=== PATIENT | female | born 1950 | race African-American/Black ===

== ENCOUNTER 2016-07-06 08:38 | Inpatient (IN) | payer OTHER ==
[2016-07-01 12:28] VITALS: BMI 40.5
[2016-07-06] MEDS ORDERED: CEFAZOLIN 2 GM in DEXTROSE 5%-WATER - 50 ML IVPB ONE (09:02)
[2016-07-06] MEDS ORDERED: ROPIVICAINE 0.2%/MORPH PF/KETOROLAC - 51ML DISP.SYRINGE IA ONE (09:02)
[2016-07-06] MEDS ORDERED: TRANEXAMIC ACID 1000 MG/10 ML VIAL IVPUSH ONE (09:02)
[2016-07-06] MEDS: CELECOXIB 200 MG CAPSULE PO ONE ×2 (09:15→15:06)
[2016-07-06] MEDS: oxyCODONE HCL 10 MG SUSTAINED ACTING TABLET PO ONE ×2 (09:15→15:06)
[2016-07-06] MEDS: GABAPENTIN 300 MG CAPSULE (FP) PO ONE ×2 (09:15→15:06)
[2016-07-06] MEDS ORDERED: BUPIVACAINE HCL/PF 0.5% (5MG/ML) 10 ML VIAL ONE (09:22)
[2016-07-06] MEDS ORDERED: VANCOMYCIN 1,750 MG in DEXTROSE 5%-WATER - 500 ML IVPB ONE ×2 (10:00→23:00)
[2016-07-06] MEDS ORDERED: MIDAZOLAM HCL 2 MG/2 ML SINGLE DOSE VIAL ONE (10:41)
[2016-07-06] MEDS ORDERED: ROPIVACAINE HCL 0.5% 30ML VIAL ONE (10:41)
[2016-07-06] MEDS ORDERED: DEXAMETHASONE SOD PHOSPHATE/PF 10 MG/ML SDV ONE (10:43)
--- NOTE | 2016-07-06 12:29 | HP ---
Admitting History and Physical - Admission Chief Complaint: left knee OA History of Present Illness: Left knee pain x many years, failed conservative management, had R TKA 03/2016 and did well. Indicated for L TKA. History Source: Patient, Medical Record Limitations to Obtaining History: No Limitations - Past Medical History CULINARY ASSISTANT: Yes: TIA Cardiovascular: Yes: HTN, Hyperlipdemia - Past Surgical History Past Surgical History: Yes: Joint Replacement - Smoking History Smoking history: Never smoked Have you smoked in the past 12 months: No Aproximately how many cigarettes per day: 0 - Alcohol/Substance Use Hx Alcohol Use: No - Social History ADL: Independent Occupation: Medical care History of Recent Travel: No Home Medications - Allergies Allergies/Adverse Reactions: Allergies Allergy/AdvReac Type Severity Reaction Status Date / Time codeine [Codeine] AdvReac GI UPSET Verified 11/11/15 23:42 - Home Medications Home Medications: Ambulatory Orders Olmesartan/Hydrochlorothiazide [Benicar Hct 40-25 mg Tablet] 1 each PO DAILY Aspirin [Ecotrin] 81 mg PO DAILY 07/01/16 Cholecalciferol (Vitamin D3) [Vitamin D3] 2,000 unit PO DAILY 07/01/16 Vitamin B Complex 1 each PO DAILY 07/01/16 Family Disease History - Family Disease History Family Disease History: Other: Father (HTN) Physical Examination Vital Signs: Vital Signs Temperature 99 F 07/06/16 09:30 Pulse Rate 76 07/06/16 09:30 Respiratory Rate 18 07/06/16 09:30 Blood Pressure 140/80 07/06/16 09:30 O2 Sat by Pulse Oximetry (%) Constitutional: Yes: Well Nourished, No Distress, Calm Eyes: Yes: WNL, Conjunctiva Clear HENT: Yes: WNL, Atraumatic, Normocephalic Neck: Yes: WNL, Supple Cardiovascular: Yes: WNL, Regular Rate and Rhythm Respiratory: Yes: WNL, Regular Gastrointestinal: Yes: WNL, Soft, Abdomen, Obese ...Rectal Exam: Yes: Deferred Musculoskeletal: Yes: Joint Stiffness, Joint Swelling, Muscle Pain Extremities: Yes: WNL Edema: No Peripheral Pulses WNL: Yes Integumentary: Yes: WNL Neurological: Yes: WNL, Alert, Oriented ...Motor Strength: WNL Psychiatric: Yes: WNL, Alert, Oriented Labs: Reviewed in chart Imaging - Results X-ray: Image Reviewed (valgus grade 4 OA) Problem List - Problems (1) Osteoarthritis of left knee Code(s): M17.9 - OSTEOARTHRITIS OF KNEE, UNSPECIFIED Qualifiers: Osteoarthritis type: primary Qualified Code(s): M17.12 - Unilateral primary osteoarthritis, left knee Assessment/Plan 65yo female with left knee OA for L TKA
[2016-07-06] MEDS ORDERED: PROMETHAZINE HCL 25 MG/1 ML VIAL IVPUSH PRN (16:07)
[2016-07-06] MEDS ORDERED: ONDANSETRON 4 MG/2 ML VIAL IVPUSH PRN (16:07)
[2016-07-06] MEDS ORDERED: HYDROmorphone HCL CARPU-JECT 1 MG/1 ML DISP.SYRIN IVPUSH PRN (16:07)
[2016-07-06] MEDS ORDERED: oxyCODONE HCL 5 MG TABLET PO PRN ×2 (16:09)
[2016-07-06] MEDS ORDERED: ROPIVACAINE 0.2% 400ML 400 ML ML NR ONE (16:09)
[2016-07-06] MEDS: ACETAMINOPHEN 1000 MG/100 ML VIAL (NON FORMULARY) IVPB ONE ×2 (16:15→18:44)
[2016-07-06] MEDS ORDERED: MAGNESIUM HYDROX 2400MG/30ML ORAL SUSPENSION 30 ML CUP PO PRN (16:33)
[2016-07-06] MEDS ORDERED: MAG HYDROX/AL HYDROX/SIMETH 30 ML UNIT-DOSE CUP PO PRN (16:33)
[2016-07-06] MEDS ORDERED: VANCOMYCIN 1,750 MG in DEXTROSE 5%-WATER - 250 ML IVPB ONE (16:33)
[2016-07-06] MEDS ORDERED: ONDANSETRON 4 MG/2 ML VIAL IVPB PRN (16:33)
--- NOTE | 2016-07-06 16:33 | OP ---
Operative Note - Note: Operative Date: 07/06/16 Pre-Operative Diagnosis: left knee OA Operation: left TKA Post-Operative Diagnosis: Same as Pre-op Surgeon: Rocael Waldron Test Engineering Intern: Melinda Walsh Anesthesia: Spinal Estimated Blood Loss (mls): 100
[2016-07-06] MEDS: traMADol HCL 50 MG TABLET PO SCH ×2 (16:45→22:10)
[2016-07-06] MEDS: KETOROLAC TROMETHAMINE 30 MG/1 ML VIAL IVPUSH SCH ×2 (16:45→22:10)
[2016-07-06] MEDS ORDERED: LACTATED RINGERS SOLUTION 1,000 ML IV SCH (16:45)
[2016-07-06] MEDS: CEFAZOLIN 2 GM/D5W 50 ML IVPB SCH (18:45)
[2016-07-06] MEDS ORDERED: GABAPENTIN 300 MG CAPSULE (FP) PO SCH (22:00)
[2016-07-06] MEDS: SENNOSIDES/DOCUSATE COMBO (SENNA PLUS) TABLET (UD) PO SCH (22:10)
[2016-07-06] MEDS: CELECOXIB 200 MG CAPSULE PO SCH (22:11)
[2016-07-06] MEDS: GABAPENTIN 300 MG CAPSULE (FP) PO SCH (22:11)
[2016-07-06] MEDS: oxyCODONE HCL 10 MG SUSTAINED ACTING TABLET PO SCH (22:11)
[2016-07-06] MEDS: ACETAMINOPHEN 325 MG TABLET (FP) PO SCH (22:11)
[2016-07-06] MEDS: ASCORBIC ACID 500 MG TABLET (FP) PO SCH (22:11)
[2016-07-07] MEDS: CEFAZOLIN 2 GM/D5W 50 ML IVPB SCH (02:01)
[2016-07-07] MEDS: ACETAMINOPHEN 325 MG TABLET (FP) PO SCH ×4 (06:48→21:50)
[2016-07-07] MEDS: traMADol HCL 50 MG TABLET PO SCH ×4 (06:49→21:55)
[2016-07-07] MEDS: KETOROLAC TROMETHAMINE 30 MG/1 ML VIAL IVPUSH SCH ×2 (06:49→12:30)
[2016-07-07 09:07] LABS: MCH 28.4 pg (25.7-33.7); MCHC 31.3 g/dl (32.0-36.0); MEAN CELL VOLUME 90.8 fl (80-96); MEAN PLT VOLUME 7.7 fl (7.5-11.1); PLATELET COUNT 236 K/MM3 (134-434); RDW 12.5 % (11.6-15.6); WHITE BLOOD COUNT 6.4 K/mm3 (4.0-10.0)
[2016-07-07] MEDS: VALSARTAN 160 MG TABLET (UD) PO SCH (09:18)
[2016-07-07] MEDS: ASPIRIN 325 MG TABLET PO SCH (09:19)
[2016-07-07] MEDS: SENNOSIDES/DOCUSATE COMBO (SENNA PLUS) TABLET (UD) PO SCH ×2 (09:19→21:55)
[2016-07-07] MEDS: ASCORBIC ACID 500 MG TABLET (FP) PO SCH ×2 (09:22→21:55)
[2016-07-07] MEDS: CELECOXIB 200 MG CAPSULE PO SCH ×2 (09:22→21:55)
[2016-07-07] MEDS: MULTIVITAMINS (DAILY MVI) TABLET (FP) PO SCH (09:22)
[2016-07-07] MEDS: GABAPENTIN 300 MG CAPSULE (FP) PO SCH ×2 (09:23→21:55)
[2016-07-07] MEDS: HYDROCHLOROTHIAZIDE 25 MG TABLET (FP) PO SCH (09:24)
[2016-07-07] MEDS: oxyCODONE HCL 10 MG SUSTAINED ACTING TABLET PO SCH ×2 (09:24→21:55)
[2016-07-07] MEDS: PANTOPRAZOLE 40 MG TABLET (FP) PO SCH (09:24)
[2016-07-07 09:38] LABS: CALCIUM 8.5 mg/dl (8.4-10.2); CREATININE 0.9 mg/dl (0.6-1.3)
--- NOTE | 2016-07-07 10:33 | PN ---
Progress Note (short form) - Note Progress Note: ANESTHESIA POST-OP CHECK 65F s/p left total knee replacement under spinal anesthesia and PNB with adductor canal catheter, POD #1. C/o nausea, currently tolerating PO but vomited once this am and once last night. Ambulated with PT, denies pain, backache, headache. Vital Signs Temperature 98.3 F 07/07/16 05:33 Pulse Rate 74 07/07/16 05:33 Respiratory Rate 19 07/07/16 05:33 Blood Pressure 98/45 07/07/16 05:33 O2 Sat by Pulse Oximetry (%) 94 L 07/07/16 05:33 Active Medications Acetaminophen (Tylenol -) 650 mg PO Q6H [facility] Stop: 07/09/16 21:59 Last Admin: 07/07/16 09:18 Dose: 650 mg Al Hydroxide/Mg Hydroxide (Mylanta Oral Suspension -) 30 ml PO Q4H PRN PRN Reason: DYSPEPSIA Ascorbic Acid (Vitamin C -) 500 mg PO BID [facility] Last Admin: 07/07/16 09:22 Dose: 500 mg Aspirin (Asa -) 325 mg PO DAILY@0800 [facility] Last Admin: 07/07/16 09:19 Dose: 325 mg Celecoxib (Celebrex -) 200 mg PO BID [facility] Last Admin: 07/07/16 09:22 Dose: 200 mg Gabapentin (Neurontin -) 300 mg PO BID [facility] Last Admin: 07/07/16 09:23 Dose: 300 mg Hydrochlorothiazide (Hctz -) 25 mg PO DAILY [facility] Last Admin: 07/07/16 09:24 Dose: 25 mg Ketorolac Tromethamine (Toradol Injection -) 30 mg IVPUSH Q6H [facility] Stop: 07/07/16 10:46 Last Admin: 07/07/16 06:49 Dose: Not Given Magnesium Hydroxide (Milk Of Magnesia -) 30 ml PO PRN PRN PRN Reason: CONSTIPATION Multivitamins/Minerals/Vitamin C (Tab-A-Vit -) 1 tab PO DAILY [facility] Last Admin: 07/07/16 09:22 Dose: 1 tab Ondansetron HCl (Zofran Injection) 4 mg IVPB Q6H PRN PRN Reason: NAUSEA Oxycodone HCl (Oxycontin -) 10 mg PO BID [facility] Stop: 07/09/16 16:10 Last Admin: 07/07/16 09:24 Dose: Not Given Oxycodone HCl (Roxicodone -) 5 mg PO Q4H PRN PRN Reason: PAIN Stop: 07/09/16 16:10 Oxycodone HCl (Roxicodone -) 10 mg PO Q4H PRN PRN Reason: PAIN Stop: 07/09/16 16:10 Pantoprazole Sodium (Protonix -) 40 mg PO DAILY [facility] Last Admin: 07/07/16 09:24 Dose: 40 mg Senna/Docusate Sodium (Pericolace -) 1 tablet PO BID [facility] Last Admin: 07/07/16 09:19 Dose: 1 tablet Tramadol HCl (Ultram -) 50 mg PO Q6H [facility] Last Admin: 07/07/16 06:49 Dose: Not Given Valsartan (Diovan -) 320 mg PO DAILY [facility] Last Admin: 07/07/16 09:18 Dose: 320 mg Gen: awake, alert Adductor canal catheter site clean, dry and intact No apparent anesthesia complications, pain well controlled. Spoke with nurse and will administer antiemetic. Instructed to call anesthesia if nausea persists
--- NOTE | 2016-07-07 16:17 | PN ---
Progress Note (short form) - Note Progress Note: Pt seen and examined this AM. Doing well. Pain well controlled. AVSS Selected Entries 07/07/16 05:33 Temperature 98.3 F Pulse Rate 74 Respiratory 19 Rate Blood Pressure 98/45 Laboratory Tests 07/07/16 07/07/16 08:18 08:18 WBC 6.4 Hgb 8.8 L Hct 28.2 L Plt Count 236 D Sodium 136 Potassium 4.2 Chloride 102 Carbon Dioxide 27 Anion Gap 7 L BUN 21 H Creatinine 0.9 Random Glucose 119 H D Calcium 8.5 Gen: NAD LLE: c/d/i, NVID A/P 65yo female POD#1 s/p L TKA 1. PT/OOB 2. D/C home tomorrow Problem List - Problems (1) Osteoarthritis of left knee Code(s): M17.9 - OSTEOARTHRITIS OF KNEE, UNSPECIFIED Qualifiers: Osteoarthritis type: primary Qualified Code(s): M17.12 - Unilateral primary osteoarthritis, left knee
[2016-07-08] MEDS: traMADol HCL 50 MG TABLET PO SCH ×2 (04:15→14:57)
[2016-07-08] MEDS: ACETAMINOPHEN 325 MG TABLET (FP) PO SCH ×2 (04:15→09:57)
[2016-07-08 06:27] VITALS: BP 112/49; PULSE 79; TEMP 98.5
[2016-07-08 08:22] LABS: MCH 28.4 pg (25.7-33.7); MCHC 31.2 g/dl (32.0-36.0); MEAN PLT VOLUME 7.3 fl (7.5-11.1); PLATELET COUNT 229 K/MM3 (134-434); RDW 12.6 % (11.6-15.6); WHITE BLOOD COUNT 5.5 K/mm3 (4.0-10.0)
[2016-07-08 08:34] LABS: CALCIUM 8.3 mg/dl (8.4-10.2)
--- NOTE | 2016-07-08 09:18 | PN ---
Progress Note (short form) - Note Progress Note: Pt seen and examined this AM. Doing well. Pain well controlled. AVSS Selected Entries 07/08/16 06:26 Temperature 98.5 F Pulse Rate 79 Respiratory 18 Rate Blood Pressure 112/49 O2 Sat by Pulse 96 Oximetry (%) Oxygen Delivery Room Air Method Laboratory Tests 07/08/16 07/08/16 07:30 07:30 WBC 5.5 Hgb 8.9 L Hct 28.5 L Plt Count 229 Sodium 139 Potassium 4.1 Chloride 105 Carbon Dioxide 28 Anion Gap 6 L BUN 26 H D Creatinine 1.0 Random Glucose 97 Calcium 8.3 L Gen: NAD LLE: c/d/i, NVID A/P 65yo female POD#2 s/p L TKA 1. PT/OOB 2. D/C home today. Problem List - Problems (1) Osteoarthritis of left knee Code(s): M17.9 - OSTEOARTHRITIS OF KNEE, UNSPECIFIED Qualifiers: Osteoarthritis type: primary Qualified Code(s): M17.12 - Unilateral primary osteoarthritis, left knee
--- NOTE | 2016-07-08 09:23 | PN ---
Progress Note (short form) - Note Progress Note: Pt states she has medications at home, so no additional prescriptions sent today. Problem List - Problems (1) Osteoarthritis of left knee Code(s): M17.9 - OSTEOARTHRITIS OF KNEE, UNSPECIFIED Qualifiers: Osteoarthritis type: primary Qualified Code(s): M17.12 - Unilateral primary osteoarthritis, left knee
[2016-07-08] MEDS: ASPIRIN 325 MG TABLET PO SCH (09:55)
[2016-07-08] MEDS: CELECOXIB 200 MG CAPSULE PO SCH (09:55)
[2016-07-08] MEDS: VALSARTAN 160 MG TABLET (UD) PO SCH (09:55)
[2016-07-08] MEDS: oxyCODONE HCL 10 MG SUSTAINED ACTING TABLET PO SCH (09:56)
[2016-07-08] MEDS: HYDROCHLOROTHIAZIDE 25 MG TABLET (FP) PO SCH (09:56)
[2016-07-08] MEDS: ASCORBIC ACID 500 MG TABLET (FP) PO SCH (09:56)
[2016-07-08] MEDS: SENNOSIDES/DOCUSATE COMBO (SENNA PLUS) TABLET (UD) PO SCH (09:56)
[2016-07-08] MEDS: GABAPENTIN 300 MG CAPSULE (FP) PO SCH (09:56)
[2016-07-08] MEDS: MULTIVITAMINS (DAILY MVI) TABLET (FP) PO SCH (09:56)
[2016-07-08] MEDS: PANTOPRAZOLE 40 MG TABLET (FP) PO SCH (09:57)
--- NOTE | 2016-07-08 13:47 | PATH ---
Surgical Pathology Report Patient Name: CHIO CISNEROS Med. Rec. #: [id number] /Age/Gender: 1950 (Age: 65) / F Account: [id number] Location: [facility] MED-SURG Taken: 07/06/2016 Received: 07/06/2016 Reported: 07/08/2016 Physicians: Rocael Waldron M.D. Specimen(s) Received BONE LEFT KNEE Clinical History Osteoarthritis left knee Final Diagnosis BONE, LEFT KNEE, TOTAL KNEE REPLACEMENT: DEGENERATIVE JOINT DISEASE. Electronically Signed Camille Linn M.D. Gross Description Received in formalin, labeled "bone left knee," is a 14.0 x 12.0 x 1.5 cm aggregate of multiple nicole, irregular portions of bone and soft tissue. There is a 3 cm in greatest dimension area of eburnation present. The remaining articular surfaces are nicole-yellow and focally granular. The underlying trabecular bone is yellow and hard. Supervisor Insulation sections are submitted in one cassette, following decalcification. 07/07/201607/07/2016
--- NOTE | 2016-07-08 15:07 | PN ---
Progress Note (short form) - Note Progress Note: pod #2, s/p tkr with adductor canal and selective tibail n block pt doing well with min c/o pain, at most 4 of 10, tolerating with NSAIDs prn avss 5/5 motor strength, hip knee and ankle site CDI plan Cath dc'd, tip intact with go home for rehab with orals for pain no complications noted
--- NOTE | 2016-07-14 01:02 | SPEC ---
DATE OF OPERATION: 07/06/2016 PREOPERATIVE DIAGNOSIS: Left knee osteoarthritis. POSTOPERATIVE DIAGNOSIS: Left knee osteoarthritis. PROCEDURE: Left total knee replacement. ATTENDING: Jannette Burgos M.D. SALES REPRESENTATIVE [employer] SUPPLIES: Muna Gautam ANESTHESIA: Spinal plus sedation. ESTIMATED BLOOD LOSS: 150 mL. COMPLICATIONS: None. SPECIMENS: Resected bone was sent for pathology and analysis. DISPOSITION: The patient was transferred to the PACU in stable condition. IMPLANTS USED: Ayaz Triathlon size 4 femoral and tibial components, 11-mm posterior stabilized polyethylene component, 32-mm patellar component. INDICATION: This is a 65-year-old female who is a well known patient of mine who has had bilateral knee osteoarthritis. She was initially treated conservatively but failed nonoperative management. She underwent a right total knee replacement in March 2016 and did well postoperative. Her pain had completely resolved, and she elected to proceed with the left total knee replacement as well. The risks, benefits, and alternatives to the procedure were explained again to the patient in the office, and she elected to proceed with the surgery. On the day of surgery, the patient was taken to the operating room and placed on the OR table. Spinal anesthesia was administered by the anesthesiologist. The patient was then positioned supine on the table and all bony prominences were padded. A nonsterile tourniquet was placed on the proximal thigh. The knee was then prepped and draped in the usual sterile fashion and intravenous antibiotics were given for infection prophylaxis. A surgical time-out was then performed with the team, and the patients identity, procedure, side, availability of implants, and the administration of antibiotics was confirmed. The leg was then elevated and exsanguinated, and the tourniquet was inflated. With the knee flexed, a midline incision was made and carried down through the subcutaneous fat to the underlying retinaculum. A medial parapatellar arthrotomy was performed. This was followed by a subperiosteal dissection of the tissue off the proximal, medial tibia. A portion of fat pad was removed from under the patellar tendon, and a small portion of fat was excised off the distal supracondylar femur. The knee was then flexed further and the anterior horn of the lateral meniscus was released from the midline. Next, the anterior and posterior cruciate ligaments were transected. Osteophytes were removed from both the femur and tibia. Grade 4 changes were noted diffusely throughout the knee. Hohmann retractors were then placed around the distal femur. The starting drill was used to enter the intramedullary canal. The starting point had been chosen by checking the radiographs and anatomy. Proper alignment and intramedullary placement was then confirmed by placing the long narrow jarrod into the femur. Next, the distal femoral cutting guide was adjusted to 6 degrees of valgus and pinned to the femur. The bone resection was assessed using an aysha-wing. An approximately 10mm distal cut was made and the cut pieces measured. Once this was complete, the sizing guide was used to determine which size femoral component should be used. Next, the appropriately sized 4-in-1 cutting block was then placed at the correct amount of external rotation and the aysha wing was used to assure that there would be no notching of the anterior cortex of the femur. Once this was done, Hohmann retractors were used to protect the medial and lateral collateral ligaments, and all appropriate bone cuts were made. Attention was then turned to the tibia. Hohmann retractors were used to translate the tibia anteriorly and protect the collateral ligaments. The medial and lateral menisci were removed. The extramedullary tibial alignment guide was then placed and adjusted for rotation, varus/valgus, and slope. The height of the cutting block was adjusted to the level of the desired bone resection and then pinned in place. The proximal tibia was then cut with a saw and the bone was removed and measured. Once this was completed, trial components were placed and the knee was taken through a full range of motion. Soft tissue balance was assessed in both flexion and extension and found to be appropriate. The knee was stable throughout the full range of motion. The knee was then put into extension and the patella everted. The synovium around the patella was circumscribed with electrocautery. A caliper was used to measure the patellar thickness and a saw was then used to resect the patella at the chondro-osseous junction. The cut surface was then sized and drilled for the appropriate patellar button, with care taken to medialize it. A trial patella was then placed and the knee was again taken through a full range of motion. The knee was found to have both good balance and good patellar tracking. All of the components were removed except the tibial base plate. The appropriate instrumentation was used to drill and punch the proximal tibia for the keel of the final component. All bony surfaces were then cleaned with pulsatile lavage and dried. Bone cement was then prepared on the back table, and final components were cemented in place in the usual fashion. Extruded cement was removed. The polyethylene trial was placed, the knee was put into extension, and axial pressure was applied for compression while the cement hardened. The patellar button was similarly cemented into place. Once the cement had hardened, the knee was taken through a full range of motion to assess stability, balance, and patellar tracking. This was found to be optimal and the trial polyethylene was exchanged for the appropriately sized real implant. The wound was then thoroughly irrigated with normal saline. No. 1 Polysorb and 0 VLoc 180 barbed sutures were used to close the arthrotomy. No. 1 Polysorb and 2-0 Polysorb sutures were used in the subcutaneous tissues. The skin was closed using both 3-0 VLoc 90 suture in a running subcuticular fashion and SwiftSet skin adhesive. Once this was completed a sterile Aquacel dressing and compressive Noman-wrap was applied. The tourniquet was then deflated and the patient was awakened and taken to the PACU in stable condition. JANNETTE BURGOS M.D. [id number]
== END 2016-07-08 16:00 | disposition home health service (06) | DRG 470 ==
LOC: FM/S 08:38
PROVIDERS: ADMIT Student in an Organized Health Care Education/Training Program; ATTEND Student in an Organized Health Care Education/Training Program
PROC: 0SRD0JZ Replacement of Left Knee Joint with Synthetic Substitute, Open Approach (ICD-10-PCS; principal; 2016-07-06 12:59)
DX: M17.12 Unilateral primary osteoarthritis, left knee (principal); Z68.41 Body mass index [BMI] 40.0-44.9, adult; I10 Essential (primary) hypertension; E78.5 Hyperlipidemia, unspecified; E66.8 Other obesity; Z71.3 Dietary counseling and surveillance; Z86.73 Personal history of transient ischemic attack (TIA), and cerebral infarction without residual deficits; Z96.651 Presence of right artificial knee joint
CPT/HCPCS: 36415; 73560-TC-LT; 80048; 85027; 88304-TC; 88311-TC; 94010; 94760; 97116-GP; 97162-PG

== ENCOUNTER 2017-03-08 08:57 | Emergency (ER) | payer OTHER ==
[2017-03-08 09:06] VITALS: TEMP 98; BMI 39.9
--- NOTE | 2017-03-08 09:14 | PDOC ---
History of Present Illness - General Chief Complaint: CVA/TIA Stated Complaint: numbness HEADACHE Time Seen by Provider: 03/08/17 09:10 History Source: Patient Exam Limitations: No Limitations - History of Present Illness Initial Comments: 03/08/17 10:55 A 66 y/o F with a significant pmhx of HTN presents for a c/o right sided facial numbness. She states that she woke up this morning around 6am and was feeling dizziness. She checked her BP, which was in the 180s, systolic. She then took her BP med (Benicar) and rechecked her BP about 10 mins later, which went down to the 140s systolic. Around 8am, she started feeling right sided facial numbness, which prompted her to come to the ED. She has never had the facial numbness before. Patient feels nauseous but denies vomiting. She denies headache, blurry vision, facial pain, CP, SOB, weakness of extremities. 03/08/17 10:59 Timing/Duration: reports: 1-3 hours, waxing and waning Severity: Yes: moderate Associated Symptoms: reports: denies symptoms Past History - Past Medical History Allergies/Adverse Reactions: Allergies Allergy/AdvReac Type Severity Reaction Status Date / Time codeine [Codeine] AdvReac GI UPSET Verified 03/08/17 09:00 Home Medications: Ambulatory Orders Olmesartan/Hydrochlorothiazide [Benicar Hct 40-25 mg Tablet] 1 each PO DAILY Cholecalciferol (Vitamin D3) [Vitamin D3] 50,000 unit PO WEEKLY 07/01/16 Aspirin [ASA -] 81 mg PO DAILY@0800 03/08/17 Anemia: Yes Asthma: No Cancer: No Cardiac Disorders: No CVA: No COPD: No CHF: No Dementia: No Diabetes: No GI Disorders: No Disorders: No HTN: Yes Hypercholesterolemia: No Liver Disease: No Seizures: No Thyroid Disease: No - Surgical History Abdominal Surgery: No Appendectomy: No Cardiac Surgery: Yes (card cath no stent) Cholecystectomy: No Lung Surgery: No Neurologic Surgery: No Orthopedic Surgery: Yes (b/l knee replacements) - Reproductive History LMP comment: menopausal - Suicide/Smoking/Psychosocial Hx Smoking Status: No Smoking History: Never smoked Have you smoked in the past 12 months: No Number of Cigarettes Smoked Daily: 0 Information on smoking cessation initiated: No Hx Alcohol Use: No Drug/Substance Use Hx: No Substance Use Type: None Hx Substance Use Treatment: No Review of Systems - Review of Systems Is the patient limited Faroese proficient: No Constitutional: Yes: Weakness HEENTM: No: Blurred Vision, Recent change in vision, Double Vision Cardiac (ROS): No: Lightheadedness ABD/GI: Yes: Nausea. No: Vomiting Neurological: Yes: Numbness All Other Systems: Reviewed and Negative *Physical Exam - Vital Signs Last Vital Signs Temp Pulse Resp BP Pulse Ox 98.0 F 80 18 150/77 100 03/08/17 09:01 03/08/17 09:01 03/08/17 09:01 03/08/17 09:01 03/08/17 09:01 - Physical Exam General Appearance: Yes: Nourished, Appropriately Dressed, Obese HEENT: positive: EOMI, DAWOOD, Normal Voice Respiratory/Chest: positive: Lungs Clear, Normal Breath Sounds Cardiovascular: positive: Regular Rhythm, Regular Rate Gastrointestinal/Abdominal: positive: Normal Bowel Sounds, Soft NIH Stroke Scale - Last Known Well Date/Time & Onset Date Last Known Well: 03/08/17 - Initial Evaluation Level of consciousness: Alert Ask patient the month and their age: Answers both correctly Ask patient to open & close eyes; make fist and let go: Obeys both correctly Best gaze (horizontal eye movement): Normal Visual field testing: No visual field loss Facial paresis (Show teeth/raise eyebrows/close eyes tight): Normal symmetrical movement Motor Function: Left Arm: Normal Motor Function: Right Arm: Normal (extends arm 90 (or 45) degrees for 10 seconds without drift Motor Function: Left Leg: Normal (extends leg 30 degrees for 5 seconds without drift) Motor Function: Right Leg: Normal (extends leg 30 degrees for 5 seconds without drift) Limb Ataxia: No ataxia Sensory(Use pinprick test arms,legs,trunk,face/side to side): Normal Best language (Describe picture, name items, read sentences): No Aphasia Dysarthria (read several words): Normal articulation Extinction and Inattention: No abnormality - Total Score NIH Stroke Scale Score: 0 Critical Care Time/MDM Note - Medical Decision Making Note: 03/08/17 12:36 Paresthesia's to face, Not really numbness. Will refer to Neurology. All testing non-diagnostic at present. 03/08/17 12:37 Chronic Dizziness, Vertigo is the most likely diagnosis although anemia is present 03/08/17 12:39 Discharge Disposition - Diagnosis Facial paresthesia, Vertigo Anemia Qualifiers: Anemia type: unspecified type Qualified Code(s): D64.9 - Anemia, unspecified; D64.9 - Anemia, unspecified - Discharge Dispostion Disposition: HOME Condition at time of disposition: Good Admit: No - Referrals Referrals: Rocael Armstrong MD [Primary Care Provider] - Gurpreet Rosario MD [Staff Physician] - - Patient Instructions Printed Discharge Instructions: DI for Numbness/tingling, DI for Iron Deficiency Anemia-Adult, DI for Vertigo Additional Instructions: Gregoria- Please follow up with Dr. Rosario, Neurology, In the meantime should you get worse or any new symptoms occur, please return to us. Best- Dr. Oseas Hartley
[2017-03-08 10:37] LABS: BASOPHIL 1.2 % (0-2.0); EOSINOPHIL 3.6 % (0-4.5); MCH 29.3 pg (25.7-33.7); MCHC 31.3 g/dl (32.0-36.0); MEAN CELL VOLUME 93.5 fl (80-96); MEAN PLT VOLUME 8.3 fl (7.5-11.1); NEUTROPHILS 53.7 % (42.8-82.8); PLATELET COUNT 213 K/MM3 (134-434); RDW 13.1 % (11.6-15.6); WHITE BLOOD COUNT 3.9 K/mm3 (4.0-10.0)
[2017-03-08 10:49] LABS: ALBUMIN 3.6 g/dl (3.4-5.0); ANION GAP 9 (8-16); CALCIUM 8.6 mg/dL (8.5-10.1); CO2 26 mmol/L (21-32); GLUCOSE,RANDOM 84 mg/dL (74-106)
[2017-03-08 10:54] LABS: ALK PHOS 107 U/L (45-117); BILIRUBIN,TOTAL 0.3 mg/dL (0.2-1.0); SGPT/ALT 16 U/L (12-78); TOT PROT 7.6 g/dl (6.4-8.2); TROPONIN I < 0.02 ng/ml (0.00-0.05)
[2017-03-08 10:56] LABS: CPK 144 IU/L (26-192); SGOT/AST 28 U/L (15-37)
[2017-03-08 12:24] LABS: URINE APPEARANCE CLEAR; URINE BILIRUBIN NEGATIVE (NEGATIVE); URINE BLOOD 1+ (NEGATIVE); URINE COLOR LTYELLOW; URINE GLUCOSE (UA) NEGATIVE (NEGATIVE); URINE KETONE NEGATIVE (NEGATIVE); URINE NITRITE NEGATIVE (NEGATIVE); URINE PROTEIN NEGATIVE (NEGATIVE); URINE UROBILINOGEN NEGATIVE mg/dL (0.2-1.0)
[2017-03-08 12:35] LABS: URINE HYALINE CAST 1 /lpf; URINE MUCUS RARE; URINE RBC 2 /hpf (0-3); URINE WBC 1 /hpf (3-5)
[2017-03-08] MEDS ORDERED: MECLIZINE HCL 25 MG TABLET (FP) PO ONE (13:01)
[2017-03-08] MEDS ORDERED: MECLIZINE HCL 25 MG TABLET (FP) ONE (13:15)
[2017-03-08 13:32] VITALS: BP 140/76; PULSE 64
[2017-03-08 17:23] LABS: URINE LEUK ESTERASE Negative (NEGATIVE)
== END 2017-03-08 13:33 | disposition home or self-care (01) ==
LOC: JER 08:57
DX: D64.9 Anemia, unspecified (principal); R20.0 Anesthesia of skin; R42 Dizziness and giddiness; I10 Essential (primary) hypertension
CPT/HCPCS: 36415; 70450-TC; 71010-TC; 80053; 81003; 81015; 84484; 85025; 85610; 99284-25

== ENCOUNTER 2018-04-22 10:21 | Emergency (ER) | payer OTHER ==
[2018-04-22 10:30] VITALS: BMI 40.3
--- NOTE | 2018-04-22 11:13 | PDOC ---
Attending Attestation - Resident Resident Name: Joanne Alexander - ED Attending Attestation I have performed the following: I have examined & evaluated the patient, The case was reviewed & discussed with the resident, I agree w/resident's findings & plan, Exceptions are as noted - HPI HPI: 04/22/18 11:13 A 67 year old female with a significant past medical history of HTN and anemia presents to the ER with right sided facial numbness and new onset left lower extremity tingling since this morning. The patient states that she normally feels intermittent right-sided facial tingling associated with hypertension she feels this several times a day to a fe wtimes a week dpeending on her her perceived bp is. She states that recently she has been visiting her primary care doctor more often due to increasing frequency of these sx. the patient states she came in today due to the left lower extremity tingling which lasted for a couple seconds before resolving at approximately 9:30. The patient states symptoms have since resolved. Patient endorses a pounding pressure in her head which is consistent with her elevated blood pressures, she denies a severe headache, acute onset of headache. She does is mild nausea denies any vomiting, vision changes, dysarthria. Pt has had multiple imaging of her brain, and also has an outpatient MRI on wednesday scheduled. The patient denies chest pain, shortness of breath, headache. Denies fever, chills, nausea, vomit, diarrhea and constipation. Denies dysuria, frequency, urgency and hematuria. PMD: Dr. Armstrong Cards: Dr. Hauser - Physicial Exam PE: 04/22/18 12:07 GENERAL: The patient is awake, alert, and fully oriented, Nontoxic - in no acute distress. HEAD: Normocephalic, atraumatic. EYES: extraocular movements intact, sclera anicteric, conjunctiva clear. ENT: Normal voice, Moist mucous membranes. NECK: Normal range of motion, supple LUNGS: Breath sounds equal, clear to auscultation bilaterally. No wheezes, no rhonchi, no rales. HEART: Regular rate and rhythm, normal S1 and S2 without murmur, rub or gallop. ABDOMEN: Soft, nontender, normoactive bowel sounds. No guarding, no rebound. . No CVA tenderness EXTREMITIES: Normal range of motion, no edema. No clubbing or cyanosis. No cords, erythema, or tenderness. NEUROLOGICAL: No facial assymetry, Normal speech, normal symmetric strength in upper and lower extremities, normal and symmetric sensation in the upper and lower extremities, symmetric facial sensation PSYCH: Normal mood, normal affect. SKIN: Warm, Dry, normal turgor, - Medical Decision Making 04/22/18 12:[address] head labs to r/o anemia, metabolic derangement neuro intact. brief/episodic nature for the past year suggests against acute neurologic event such as TIA/CVA will reassess Heart Score/ECG Review - ECG Impressions Comment:: 04/22/18 12:10 Twelve-lead EKG was performed and reviewed by me. There is normal sinus rhythm with a normal rate. rate f 70 The axis is normal The intervals are normal No ST changes suggestive of acute ischemia
--- NOTE | 2018-04-22 11:29 | PDOC ---
History of Present Illness - General Chief Complaint: Blood Pressure Problem Stated Complaint: HIGH BLOOD PRESSURE Time Seen by Provider: 04/22/18 10:29 Past History - Past Medical History Allergies/Adverse Reactions: Allergies Allergy/AdvReac Type Severity Reaction Status Date / Time codeine [Codeine] AdvReac GI UPSET Verified 03/08/17 09:00 Home Medications: Ambulatory Orders Cholecalciferol (Vitamin D3) [Vitamin D3] 50,000 unit PO WEEKLY 07/01/16 Aspirin [ASA -] 81 mg PO DAILY@0800 03/08/17 Amlodipine Besylate [Norvasc -] 5 mg PO DAILY 04/22/18 Losartan/Hydrochlorothiazide [Losartan-Hctz 100-25 mg Tab] 1 each PO DAILY 04/22 Anemia: Yes Asthma: No Cancer: No Cardiac Disorders: No CVA: No COPD: No CHF: No Dementia: No Diabetes: No GI Disorders: No Disorders: No HTN: Yes Hypercholesterolemia: No Liver Disease: No Seizures: No Thyroid Disease: No - Surgical History Abdominal Surgery: No Appendectomy: No Cardiac Surgery: Yes (card cath no stent) Cholecystectomy: No Lung Surgery: No Neurologic Surgery: No Orthopedic Surgery: Yes (b/l knee replacements) - Suicide/Smoking/Psychosocial Hx Smoking Status: No Smoking History: Never smoked Have you smoked in the past 12 months: No Number of Cigarettes Smoked Daily: 0 Hx Alcohol Use: No Drug/Substance Use Hx: No Substance Use Type: None Hx Substance Use Treatment: No Review of Systems - Review of Systems Constitutional: No: Chills, Fever, Loss of Appetite, Malaise HEENTM: No: Eye Pain, Double Vision, Nose Congestion, Difficulty Swallowing Respiratory: Yes: Cough. No: Orthopnea, Wheezing Cardiac (ROS): No: Chest Pain, Lightheadedness ABD/GI: No: Abdominal Distended, Constipated, Diarrhea, Nausea, Vomiting : No: Burning, Dysuria Neurological: Yes: Numbness, Tingling, Dizziness. No: Headache, Weakness *Physical Exam - Vital Signs Last Vital Signs Temp Pulse Resp BP Pulse Ox 97.9 F 84 18 154/76 100 04/22/18 10:27 04/22/18 10:27 04/22/18 10:27 04/22/18 10:27 04/22/18 10:27 - Physical Exam General Appearance: Yes: Nourished, Appropriately Dressed, Obese HEENT: positive: EOMI, DAWOOD, Normal ENT Inspection, Normal Voice, Symmetrical, TMs Normal Neck: positive: Trachea midline, Normal Thyroid, Supple Respiratory/Chest: positive: Lungs Clear, Normal Breath Sounds Cardiovascular: positive: Regular Rhythm, Regular Rate, S1, S2 Vascular Pulses: Dorsalis-Pedis (R): 2+, Doralis-Pedis (L): 2+ Gastrointestinal/Abdominal: positive: Normal Bowel Sounds, Soft. negative: Distended, Tenderness Extremity: positive: Normal Inspection, Normal Range of Motion Neurologic: positive: trouble locator test desk II-XII NML intact, Fully Oriented, Alert, Normal Mood/ Affect, Normal Response, Motor Strength 10/02 ED Treatment Course - LABORATORY CBC & Chemistry Diagram: 04/22/18 11:36 04/22/18 11:21 - RADIOLOGY Radiology Studies Ordered: Category Date Time Status HEAD CT WITHOUT CONTRAST [CT] Stat CT Scan 04/22/18 11:18 Ordered Medical Decision Making - Medical Decision Making 04/22/18 11:28 Patient is a 67 year old female with past medical history of HTN, presented with intermittent episodes of right-sided facial numbness and dizziness, lasting for about a minute, that was occurring more frequently since 1 week ago. Patient reports having this facial numbness and dizziness for the past 2-3 years. Has visited the ED a couple of times, and had work-ups done which were negative for any concerns. Patient notes symptoms started this morning upon waking up, checked her blood pressure with SBPs at 160s. She took her BP medications Losartan/HCTZ and Amlodipine this morning. She also reports new left leg tingling and numbness that started a week ago. Persistence of symptoms prompted patient to come to the ED. Denies blurring of vision, headache, fevers , chills, chest pain, SOB, palpitations, abdominal pain, or urinary symptoms. General: awake, alert, oriented, not in acute distress Head: no signs of head trauma HEENT: PERRLA, EOMI, Neck: supple, trachea midline, with LAD, no JVD Lung: clear to auscultations bilaterally, good air entry Heart: regular rate and rhythm, normal S1/S2, no m,r,g Abdomen: soft, nontender, nondistended, NABS Ext: +2 pulses, no peripheral edema Neurologic: CN II-XII intact, motor 5/5 on all extremities, sensation intact, DTRs +2, normal FTNT, normal gait DDx includes but not limited to TIA/CVA, Merritt's palsy, electrolyte abnormalities , Anemia CBC, CMP UA EKG Head CT scan 04/22/18 13:[address] scan done - wnl Will discharge with instructions to follow-up with PCP and do outpatient MRI *DC/Admit/Observation/Transfer - Referrals Referrals: Rocael Armstrong MD [Primary Care Provider] - - Patient Instructions Additional Instructions: You were seen because you were experiencing numbness on the right side of your face, as well as an elevated blood pressure. CAT scan of the head was done which was negative for any concerns. Continue taking your blood pressure pills as prescribed. Please follow-up with your primary care doctor within 2-3 days. You also mentioned a scheduled MRI next Wednesday. Don't miss the appointment and follow-up with Dr. Armstrong once with results. Call 911 or go the ED if with any worsening weakness, numbness, tingling, SOB, fever, chills or any new concerns noted. - Post Discharge Activity
[2018-04-22 11:41] LABS: URINE APPEARANCE CLEAR; URINE BILIRUBIN NEGATIVE (<2.0 mg/dL); URINE COLOR STRAW; URINE GLUCOSE (UA) NEGATIVE (NEGATIVE); URINE KETONE NEGATIVE (NEGATIVE); URINE LEUK ESTERASE NEGATIVE (NEGATIVE); URINE NITRITE NEGATIVE (NEGATIVE); URINE PROTEIN NEGATIVE (NEGATIVE); URINE UROBILINOGEN NEGATIVE mg/dL (0.2-1.0)
[2018-04-22 12:10] LABS: EOS % 4.8 % (0-4.5); HEMOGLOBIN 11.7 GM/dL (10.7-15.3); LYMPH % 39.3 % (8-40); MCH 31.6 pg (25.7-33.7); MCHC 34.4 g/dl (32.0-36.0); MEAN CELL VOLUME 91.7 fl (80-96); MONO % 7.3 % (3.8-10.2); NEUT % 47.6 % (42.8-82.8); PLATELET COUNT 231 K/MM3 (134-434); RBC 3.71 M/mm3 (3.60-5.2); RDW 13.7 % (11.6-15.6); WHITE BLOOD COUNT 3.6 K/mm3 (4.0-10.0)
[2018-04-22 12:42] LABS: ALBUMIN 3.5 g/dl (3.4-5.0); ALK PHOS 106 U/L (45-117); ANION GAP 9 MMOL/L (8-16); BILIRUBIN,TOTAL 0.3 mg/dL (0.2-1); BLOOD UREA NITROGEN 23 mg/dL (7-18); CALCIUM 8.5 mg/dL (8.5-10.1); CHLORIDE 104 mmol/L (98-107); CO2 25 mmol/L (21-32); GLUCOSE,RANDOM 88 mg/dL (74-106); POTASSIUM 4.5 mmol/L (3.5-5.1); SGOT/AST 22 U/L (15-37); SGPT/ALT 18 U/L (13-61); SODIUM 138 mmol/L (136-145); TOT PROT 7.6 g/dl (6.4-8.2)
[2018-04-22 13:45] VITALS: BP 146/62; PULSE 69; TEMP 98.1
--- NOTE | 2018-04-23 12:06 | EKG ---
Test Reason : Blood Pressure : / mmHG Vent. Rate : 070 BPM Atrial Rate : 070 BPM P-R Int : 198 ms QRS Dur : 086 ms QT Int : 386 ms P-R-T Axes : 067 048 024 degrees QTc Int : 416 ms NORMAL SINUS RHYTHM POSSIBLE LEFT ATRIAL ENLARGEMENT NONSPECIFIC T WAVE ABNORMALITY WHEN COMPARED WITH ECG OF 08-MAR-2017 11:21, NO SIGNIFICANT CHANGE WAS FOUND Confirmed by YOANA COLLADO MD ([id number]) on 04/23/2018 12:06:01 PM Referred By: Confirmed By:YOANA COLLADO MD
== END 2018-04-22 13:30 | disposition home or self-care (01) ==
LOC: JER 10:21
DX: R00.2 Palpitations (principal); I10 Essential (primary) hypertension
CPT/HCPCS: 36415; 70450-TC; 80053; 81003; 85025; 93005; 93010; 99282-25

== ENCOUNTER 2024-11-16 17:32 | Emergency (ER) | payer OTHER ==
[2024-11-16 17:45] VITALS: TEMP 98.6; BMI 42.0
[2024-11-16 18:31] LABS: ABSOLUTE IMMATURE GRANULOCYTES 0.01 x10^3/uL (0.0-0.031); BASOPHILS # 0.02 x10^3/uL (0.01-0.08); EOSINOPHIL % 2.6 % (0.7-5.8); EOSINOPHILS # 0.17 x10^3/uL (0.04-0.36); HEMATOCRIT 36.8 % (34.1-44.9); HEMOGLOBIN 11.4 g/dL (11.2-15.7); MEAN CELL VOLUME 94.8 fl (79.4-94.8); MEAN PLT VOLUME 9.9 fl (9.4-12.3); MONOCYTE # 0.32 x10^3/uL (0.24-0.86); MONOCYTE % 4.9 % (4.7-12.5); PLATELET COUNT 208 x10^3/uL (182-369); RDW 13.2 % (12.4-16.6)
[2024-11-16 19:19] LABS: POTASSIUM 4.1 mmol/L (3.5-5.1)
[2024-11-16 19:21] LABS: ALBUMIN 3.8 g/dl (3.4-5.0); CALCIUM 9.8 mg/dL (8.5-10.1)
[2024-11-16 19:22] LABS: BLOOD UREA NITROGEN 18.5 mg/dL (7-18); MAGNESIUM 1.8 mg/dL (1.8-2.4)
[2024-11-16 19:25] LABS: CREATININE 1.1 mg/dL (0.55-1.3)
[2024-11-16 19:26] LABS: BILIRUBIN,TOTAL 0.6 mg/dL (0.2-1); TOT PROT 7.8 g/dl (6.4-8.2)
[2024-11-16 19:30] LABS: N-TERMINAL BNP 162.6 pg/ml (5-450)
[2024-11-16 20:24] VITALS: BP 129/49; PULSE 65; RESP 17
== END 2024-11-16 20:27 | disposition home or self-care (01) ==
LOC: JER 17:32
DX: R06.02 Shortness of breath (principal); R05.9 Cough, unspecified
CPT/HCPCS: 0241U-QW; 36415; 71045-TC-FY; 80053; 83735; 83880; 84484; 85025; 93005; 93010; 99285-25